=== PATIENT | female | born 1995 | race Caucasian/White ===

== ENCOUNTER 2016-07-21 13:49 | Emergency (ER) | payer OTHER, BC ==
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
[2016-07-21 15:43] VITALS: BP 122/67
== END 2016-07-21 15:44 | disposition home or self-care (01) ==
LOC: ER 13:49
DX: S16.1XXA Strain of muscle, fascia and tendon at neck level, initial encounter (principal); V44.5XXA Car driver injured in collision with heavy transport vehicle or bus in traffic accident, initial encounter; M54.5 Low back pain
CPT/HCPCS: 99283